=== PATIENT | female | born 1955 | race Caucasian/White ===

== ENCOUNTER 2017-10-09 13:13 | Observation (INO) | payer OTHER ==
[2017-10-09 13:20] VITALS: BMI 26.6
[2017-10-09] MEDS ORDERED: ONDANSETRON 4 MG/2 ML VIAL IVPUSH STA (14:15)
[2017-10-09] MEDS ORDERED: SODIUM CHLORIDE 1,000 ML IV STA (14:23)
--- NOTE | 2017-10-09 14:26 | PDOC ---
History of Present Illness <FeliciaDamian - Last Filed: 10/09/17 17:21> - General History Source: Patient Exam Limitations: No Limitations - History of Present Illness Initial Comments: This is a 61 YOF with h/o TIA (on ASA), HTN, HLD, and occasional positional vertigo who presents c/o 10/10 constant non-radiating frontal headache with associated with constant vertigo for the past two days. This is in the setting of recent flu-like symptoms (sore throat, cough, fever, chills, and nausea). The headache started gradually and has been unrelieved with Tylenol. The patient notes that these symptoms feel the same as her prior TIA, and the vertigo feels different from her prior episodes of vertigo because now it is constant and not positional. She has had difficulty walking and balancing since the onset of headache and vertigo, and almost fell at home but was able to catch herself on a handrail. She did get a flu vaccination this year. She denies any new numbness, tingling, focal weakness, vision changes, speech changes, difficulty swallowing, chest pain, SOB, palpitations, abdominal pain, vomiting, diarrhea, or constipation. <Opal Watkins - Last Filed: 10/09/17 20:22> - General Chief Complaint: Headache Stated Complaint: DIZZINESS, HEADACHES Time Seen by Provider: 10/09/17 13:48 Past History <FeliciaDamian - Last Filed: 10/09/17 17:21> - Past Medical History Cardiac Disorders: Yes COPD: No HTN: Yes Hypercholesterolemia: Yes - Suicide/Smoking/Psychosocial Hx Smoking History: Never smoked Hx Alcohol Use: No Drug/Substance Use Hx: No Substance Use Type: None <Opal Watkins - Last Filed: 10/09/17 20:22> - Past Medical History Allergies/Adverse Reactions: Allergies Allergy/AdvReac Type Severity Reaction Status Date / Time No Known Allergies Allergy Verified 10/09/17 13:18 Home Medications: Ambulatory Orders Aspirin [ASA -] 81 mg PO DAILY 10/09/17 Atorvastatin Calcium 40 mg PO DAILY 10/09/17 Carvedilol 12.5 mg PO BID 10/09/17 Meclizine HCl 12.5 mg PO DAILY 10/09/17 Review of Systems - Review of Systems Able to Perform ROS?: Yes Constitutional: Yes: Chills, Fever. No: Unexplained wgt Loss HEENTM: Yes: Nose Congestion, Throat Pain Respiratory: Yes: Cough. No: Shortness of Breath Cardiac (ROS): No: Chest Pain, Palpitations ABD/GI: Yes: Nausea. No: Constipated, Diarrhea, Vomiting : No: Burning, Dysuria Musculoskeletal: No: Back Pain, Neck Pain Integumentary: No: Bruising, Rash Neurological: Yes: Headache, Dizziness. No: Numbness, Tingling, Weakness Endocrine: No: Unexplained Weight Gain, Unexplained Weight Loss <Opal Watkins - Last Filed: 10/09/17 20:22> *Physical Exam - Vital Signs Last Vital Signs Temp Pulse Resp BP Pulse Ox 100.3 F H 100 H 18 114/73 98 10/09/17 13:17 10/09/17 13:17 10/09/17 13:17 10/09/17 13:17 10/09/17 13:59 <Damian Duarte - Last Filed: 10/09/17 17:21> - Vital Signs Last Vital Signs Temp Pulse Resp BP Pulse Ox 100.3 F H 100 H 18 114/73 98 10/09/17 13:17 10/09/17 13:17 10/09/17 13:17 10/09/17 13:17 10/09/17 13:59 <Opal Watkins - Last Filed: 10/09/17 20:22> ED Treatment Course - LABORATORY CBC & Chemistry Diagram: 10/09/17 14:41 10/09/17 14:41 - ADDITIONAL ORDERS Additional order review: Laboratory Results 10/09/17 10/09/17 10/09/17 14:41 14:41 14:41 PT with INR INR VBG pH 7.37 POC VBG pCO2 47.7 POC VBG pO2 36.0 Mixed VBG HCO3 27.1 H Sodium Potassium Chloride Carbon Dioxide Anion Gap BUN Creatinine Creat Clearance w eGFR Random Glucose Lactic Acid 0.8 Calcium Phosphorus Magnesium Total Bilirubin AST ALT Alkaline Phosphatase Creatine Kinase Troponin I B-Natriuretic Peptide Total Protein Albumin Urine Color Urine Appearance Urine pH Ur Specific [place] Urine Protein Urine Glucose (UA) Urine Ketones Urine Blood Urine Nitrite Urine Bilirubin Urine Urobilinogen Ur Leukocyte Esterase Blood Type B POSITIVE Antibody Screen Negative 10/09/17 10/09/17 10/09/17 14:41 14:41 14:41 PT with INR 12.50 H INR 1.11 VBG pH POC VBG pCO2 POC VBG pO2 Mixed VBG HCO3 Sodium 140 Potassium 3.6 Chloride 103 Carbon Dioxide 30 Anion Gap 7 L BUN 16 Creatinine 0.9 Creat Clearance w eGFR > 60 Random Glucose 119 H Lactic Acid Calcium 8.7 Phosphorus 2.7 Magnesium 1.9 Total Bilirubin 0.4 AST 27 ALT 45 Alkaline Phosphatase 140 H Creatine Kinase 71 Troponin I < 0.02 B-Natriuretic Peptide 68.42 Total Protein 7.7 Albumin 3.5 Urine Color Yellow Urine Appearance Clear Urine pH 6.0 Ur Specific [place] 1.021 Urine Protein Negative Urine Glucose (UA) Negative Urine Ketones Negative Urine Blood Negative Urine Nitrite Negative Urine Bilirubin Negative Urine Urobilinogen Negative Ur Leukocyte Esterase Negative Blood Type Antibody Screen 10/09/17 14:41 RBC 4.39 MCV 85.8 MCHC 32.4 RDW 13.5 MPV 8.4 Neutrophils % 56.3 Lymphocytes % 27.4 Monocytes % 14.9 H Eosinophils % 1.1 Basophils % 0.3 - Medications Given in the ED: ED Medications Discontinued Medications Generic Name Dose Route Start Last Admin Trade Name Freq PRN Reason Stop Dose Admin Sodium Chloride 1,000 mls @ 1,000 mls/hr 10/09/17 14:23 10/09/17 14:47 Normal Saline - IV 10/09/17 15:22 1,000 mls/hr ASDIR STA Administration Ondansetron HCl 4 mg 10/09/17 14:15 10/09/17 14:47 Zofran Injection IVPUSH 10/09/17 14:16 4 mg ONCE STA Administration <Damian Duarte - Last Filed: 10/09/17 17:21> - LABORATORY CBC & Chemistry Diagram: 10/09/17 14:41 10/09/17 14:41 - RADIOLOGY Radiology Studies Ordered: Category Date Time Status HEAD CT WITHOUT CONTRAST [CT] Stat CT Scan 10/09/17 14:16 Ordered CHEST X-RAY PORTABLE* [RAD] Stat Radiology 10/09/17 14:15 Ordered <Opal Watkins - Last Filed: 10/09/17 20:22> Medical Decision Making - Medical Decision Making 10/09/17 17:21 61-year-old female with a history of TIA and positional vertigo presents with vertigo that she states is consistent with her previous TIA. Vitals remarkable for fever to 100.3 and tachycardia to the low 100s. Exam is unremarkable and patient is neurologically intact. Differential includes TIA versus CVA versus peripheral vertigo. Given history of similar symptoms diagnosed as TIA, IF CT head is negative patient will likely require an MRI and neuro consultation. She is out of the window for treatment with TPA. <KvngwillamDamian - Last Filed: 10/09/17 17:21> - Medical Decision Making 10/09/17 20:06 Received final read on non-con Head CT which shows nothing acute. Spoke with patient about her PCP - this is Gwen Jett who is not on [facility] service. Page sent to [facility] for admission to Tele Obs. 10/09/17 20:[address] Roy who admits patient to Tele Obs. Consult placed for neuro OC Dr. Sim. Decision to admit placed. <Opal Watkins - Last Filed: 10/09/17 20:22> *DC/Admit/Observation/Transfer <MatDamian quarles - Last Filed: 10/09/17 17:21> - Discharge Dispostion Admit: Yes <Opal Watkins - Last Filed: 10/09/17 20:22> Diagnosis at time of Disposition: Vertigo Headache Qualifiers: Headache type: unspecified Headache chronicity pattern: acute headache Intractability: not intractable Qualified Code(s): R51 - Headache - Discharge Dispostion Condition at time of disposition: Guarded - Referrals Referrals: ON STAFF,NOT [Primary Care Provider] - NIH Stroke Scale - Last Known Well Date/Time & Onset Date Last Known Well: 10/06/17 Time Last Known Well: 20:00 - Initial Evaluation Level of consciousness: Alert Ask patient the month and their age: Answers both correctly Ask patient to open & close eyes; make fist and let go: Obeys both correctly Best gaze (horizontal eye movement): Normal Visual field testing: No visual field loss Facial paresis (Show teeth/raise eyebrows/close eyes tight): Normal symmetrical movement Motor Function: Left Arm: Normal Motor Function: Right Arm: Normal (extends arm 90 (or 45) degrees for 10 seconds without drift Motor Function: Left Leg: Normal (extends leg 30 degrees for 5 seconds without drift) Motor Function: Right Leg: Normal (extends leg 30 degrees for 5 seconds without drift) Limb Ataxia: No ataxia Sensory(Use pinprick test arms,legs,trunk,face/side to side): Normal Best language (Describe picture, name items, read sentences): No Aphasia Dysarthria (read several words): Normal articulation Extinction and Inattention: No abnormality - Total Score NIH Stroke Scale Score: 0 <Opal Watkins - Last Filed: 10/09/17 20:22>
[2017-10-09] MEDS ORDERED: ONDANSETRON 4 MG/2 ML VIAL ONE (14:44)
[2017-10-09 14:52] LABS: BASO % 0.3 % (0-2.0); EOS % 1.1 % (0-4.5); HEMATOCRIT 37.6 % (32.4-45.2); HEMOGLOBIN 12.2 GM/dL (10.7-15.3); LYMPH % 27.4 % (8-40); MCH 27.8 pg (25.7-33.7); MCHC 32.4 g/dl (32.0-36.0); MEAN CELL VOLUME 85.8 fl (80-96); MEAN PLT VOLUME 8.4 fl (7.5-11.1); MONO % 14.9 % (3.8-10.2); NEUT % 56.3 % (42.8-82.8); PLATELET COUNT 190 K/MM3 (134-434); RBC 4.39 M/mm3 (3.60-5.2); RDW 13.5 % (11.6-15.6)
[2017-10-09 14:56] LABS: URINE APPEARANCE CLEAR; URINE BILIRUBIN NEGATIVE (NEGATIVE); URINE BLOOD NEGATIVE (NEGATIVE); URINE COLOR YELLOW; URINE GLUCOSE (UA) NEGATIVE (NEGATIVE); URINE KETONE NEGATIVE (NEGATIVE); URINE LEUK ESTERASE NEGATIVE (NEGATIVE); URINE NITRITE NEGATIVE (NEGATIVE); URINE PROTEIN NEGATIVE (NEGATIVE); URINE UROBILINOGEN NEGATIVE mg/dL (0.2-1.0)
[2017-10-09 15:01] LABS: VENOUS PC02 47.7 mmHg (38-52); VENOUS PH 7.37 (7.32-7.42)
[2017-10-09 15:06] LABS: INR 1.11 (0.82-1.09); PROTHROMBIN TIME (PATIENT) 12.5 SEC (9.98-11.88)
[2017-10-09 15:20] LABS: ALBUMIN 3.5 g/dl (3.4-5.0); ANION GAP 7 (8-16); BILIRUBIN,TOTAL 0.4 mg/dL (0.2-1.0); BLOOD UREA NITROGEN 16 mg/dL (7-18); CALCIUM 8.7 mg/dL (8.5-10.1); CHLORIDE 103 mmol/L (98-107); CO2 30 mmol/L (21-32); CREATININE 0.9 mg/dL (0.55-1.02); GLUCOSE,RANDOM 119 mg/dL (74-106); MAGNESIUM 1.9 mg/dL (1.8-2.4); PHOSPHOROUS 2.7 mg/dL (2.5-4.9); POTASSIUM 3.6 mmol/L (3.5-5.1); SGOT/AST 27 U/L (15-37); SGPT/ALT 45 U/L (12-78); SODIUM 140 mmol/L (136-145); TOT PROT 7.7 g/dl (6.4-8.2)
[2017-10-09 15:23] LABS: ALK PHOS 140 U/L (45-117); N-TERMINAL BNP 68.42 pg/ml (5-125)
[2017-10-09] MEDS ORDERED: METOCLOPRAMIDE HCL INJECTION 10 MG/2 ML VIAL ONE (17:58)
[2017-10-09] MEDS ORDERED: METOCLOPRAMIDE HCL INJECTION 10 MG/2 ML VIAL IVPUSH ONE (18:06)
--- NOTE | 2017-10-09 18:25 | PDOC ---
Attending Attestation - Resident Resident Name: Opal Watkins - ED Attending Attestation I have performed the following: I have examined & evaluated the patient, The case was reviewed & discussed with the resident, I agree w/resident's findings & plan, Exceptions are as noted - HPI HPI: 10/09/17 18:24 The patient is a 61 year old female, with a significant past medical history of TIA (5 months ago, sxs of vertigo), HTN and HLD, BPPV on meclizine PRN who presents to the emergency department with headache and vertigo for the past 2 days. She descrbes her headahce as localized in the frontal region, ranging from mild to moderate, with radiation to the temples bilaterally. She denies any modifying factors. She reports that the pain was gradual onset. She notes that she recently had flu like symptoms 4 days ago, which included fever, cough, sore throat runny nose and nausea. She reports that she has been taking meclizine for her vertgio, which has not been working. She reports that she has seen a neurologist before and her next appointment is not for a few more months. The patient denies chest pain, shortness of breath, chills, vomit, diarrhea and constipation. Denies dysuria, frequency, urgency and hematuria. Allergies: None Past surgical history: None reported Social history: No alcohol, tobacco or drug use reported - Physicial Exam PE: 10/09/17 18:25 GENERAL: Awake, alert, and fully oriented, in no acute distress, feels warm HEAD: No signs of trauma EYES: PERRLA, EOMI, sclera anicteric, conjunctiva clear ENT: Auricles normal inspection, hearing grossly normal, nares patent, oropharynx clear without exudates. Moist mucosa NECK: Normal ROM, supple, no lymphadenopathy, JVD, or masses. Neck is supple with negative kernigs and brudzinski's signs. LUNGS: Breath sounds equal, clear to auscultation bilaterally. No wheezes, and no crackles HEART: Regular rate and rhythm, normal S1 and S2, no murmurs, rubs or gallops ABDOMEN: Soft, nontender, normoactive bowel sounds. No guarding, no rebound. No masses EXTREMITIES: Normal range of motion, no edema. No clubbing or cyanosis. No cords, erythema, or tenderness NEUROLOGICAL: Normal speech, cranial nerves intact, negative pronator drift, 5/ 5 strength in all 4 extremities, normal sensation to light touch in all 4 extremities, normal cerebellar exam, normal gait, normal reflexes and tone. SKIN: Warm, Dry, normal turgor, no rashes or lesions noted. - Medical Decision Making 10/09/17 18:27 61-year-old female with a history of TIA, positional vertigo presents with nonbloody positional vertigo. Patient also reports flulike symptoms. Vitals remarkable for fever and mild tachycardia initially, heart rate now 94. Exam is unremarkable, NIH stroke scale is 0 at this time. Given history of TIA with similar symptoms, we'll obtain a CT had and if negative patient will require neuro consult, MRI and admission. With regards to fever, patient likely has viral syndrome/possibly influenza. Will obtain chest x-ray, urinalysis and flu swab for further evaluation. Given headache and dizziness, meningitis is a consideration, however patient is not altered, is not meningitic, does not have a rash, and is neurologically intact.
--- NOTE | 2017-10-09 21:23 | PN ---
Teaching Attending Note Name of Resident: Wili Johnson ATTENDING PHYSICIAN STATEMENT I saw and evaluated the patient. I reviewed the resident's note and discussed the case with the resident. I agree with the resident's findings and plan as documented. SUBJECTIVE: 60 F with Pmhx of TIA, HTN, HLD and BPPV who presents with 10/10 headache and constant vertigo. States she has had fever, chills sore throat and associated nausea. Notes she has had her flu shot this year. States He headache is similar to prior TIA, and her dizziness is different from her positional vertigo in that it is constant in nature and unrelieved by Meclizine. No numbness or tingling. States headache has improved. No chest pain or pressure. No vomiting or diarrhea. Denies any sick contacts. No chest pain or pressure. OBJECTIVE: Physical: VS: Vital Signs Period Temp Pulse Resp BP Sys/Ricardo Pulse Ox Last 24 Hr 98.9 F-100.3 F 89-100 17-18 114-123/73-76 97-98 GEN: NAD, Resting in bed, AA0X3 HEENT: NCAT, PERRL, throat without erythema or exudates CARD: RRR S1, S2 RESP: Mild Crackles L. Base, R lung CTA ABD: BSx4, NTD to palpation EXT: - C/C/E NEURO: CN II-XII intact CBCD WBC 5.0 K/mm3 (4.0-10.0) 10/09/17 14:41 RBC 4.39 M/mm3 (3.60-5.2) 10/09/17 14:41 Hgb 12.2 GM/dL (10.7-15.3) 10/09/17 14:41 Hct 37.6 % (32.4-45.2) 10/09/17 14:41 MCV 85.8 fl (80-96) 10/09/17 14:41 MCHC 32.4 g/dl (32.0-36.0) 10/09/17 14:41 RDW 13.5 % (11.6-15.6) 10/09/17 14:41 Plt Count 190 K/MM3 (134-434) 10/09/17 14:41 MPV 8.4 fl (7.5-11.1) 10/09/17 14:41 CMP Sodium 140 mmol/L (136-145) 10/09/17 14:41 Potassium 3.6 mmol/L (3.5-5.1) 10/09/17 14:41 Chloride 103 mmol/L (98-107) 10/09/17 14:41 Carbon Dioxide 30 mmol/L (21-32) 10/09/17 14:41 Anion Gap 7 (8-16) L 10/09/17 14:41 BUN 16 mg/dL (7-18) 10/09/17 14:41 Creatinine 0.9 mg/dL (0.55-1.02) 10/09/17 14:41 Creat Clearance w eGFR > 60 (>60) 10/09/17 14:41 Random Glucose 119 mg/dL (74-106) H 10/09/17 14:41 Calcium 8.7 mg/dL (8.5-10.1) 10/09/17 14:41 Total Bilirubin 0.4 mg/dL (0.2-1.0) 10/09/17 14:41 AST 27 U/L (15-37) 10/09/17 14:41 ALT 45 U/L (12-78) 10/09/17 14:41 Alkaline Phosphatase 140 U/L (45-117) H 10/09/17 14:41 Total Protein 7.7 g/dl (6.4-8.2) 10/09/17 14:41 Albumin 3.5 g/dl (3.4-5.0) 10/09/17 14:41 CARDIAC ENZYMES Creatine Kinase 71 IU/L (26-192) 10/09/17 14:41 Troponin I < 0.02 ng/ml (0.00-0.05) 10/09/17 14:41 CBCD WBC 5.0 K/mm3 (4.0-10.0) 10/09/17 14:41 RBC 4.39 M/mm3 (3.60-5.2) 10/09/17 14:41 Hgb 12.2 GM/dL (10.7-15.3) 10/09/17 14:41 Hct 37.6 % (32.4-45.2) 10/09/17 14:41 MCV 85.8 fl (80-96) 10/09/17 14:41 MCHC 32.4 g/dl (32.0-36.0) 10/09/17 14:41 RDW 13.5 % (11.6-15.6) 10/09/17 14:41 Plt Count 190 K/MM3 (134-434) 10/09/17 14:41 MPV 8.4 fl (7.5-11.1) 10/09/17 14:41 CMP Sodium 140 mmol/L (136-145) 10/09/17 14:41 Potassium 3.6 mmol/L (3.5-5.1) 10/09/17 14:41 Chloride 103 mmol/L (98-107) 10/09/17 14:41 Carbon Dioxide 30 mmol/L (21-32) 10/09/17 14:41 Anion Gap 7 (8-16) L 10/09/17 14:41 BUN 16 mg/dL (7-18) 10/09/17 14:41 Creatinine 0.9 mg/dL (0.55-1.02) 10/09/17 14:41 Creat Clearance w eGFR > 60 (>60) 10/09/17 14:41 Random Glucose 119 mg/dL (74-106) H 10/09/17 14:41 Calcium 8.7 mg/dL (8.5-10.1) 10/09/17 14:41 Total Bilirubin 0.4 mg/dL (0.2-1.0) 10/09/17 14:41 AST 27 U/L (15-37) 10/09/17 14:41 ALT 45 U/L (12-78) 10/09/17 14:41 Alkaline Phosphatase 140 U/L (45-117) H 10/09/17 14:41 Total Protein 7.7 g/dl (6.4-8.2) 10/09/17 14:41 Albumin 3.5 g/dl (3.4-5.0) 10/09/17 14:41 CARDIAC ENZYMES Creatine Kinase 71 IU/L (26-192) 10/09/17 14:41 Troponin I < 0.02 ng/ml (0.00-0.05) 10/09/17 14:41 Ambulatory Orders Aspirin [ASA -] 81 mg PO DAILY 10/09/17 Atorvastatin Calcium 40 mg PO DAILY 10/09/17 Carvedilol 12.5 mg PO BID 10/09/17 Meclizine HCl 12.5 mg PO DAILY 10/09/17 NIHSS 0 EKG: NSR- NO ST-T Changes CXR: No acute process ASSESSMENT AND PLAN: 60 F with Pmhx of TIA, HTN, HLD and BPPV who presents with 10/10 headache and constant vertigo, found to be febrile and will be admitted for CVA/TIA Rule out. 1.) Dizziness: Labryinthitis vs. CVA/TIA vs. BPPV - Echo recently done outpt. obtain records - Carotid US - Trend Trop/EKG - C/W ASA/STATIN - Lipid Panel/A1C - TSH, B12, Folate - MRI Brain WO Con - Neuro consult - Meclizine prn - Kym-Flu for fever/URI sx 2.) HTN - C/W Coreg 3.) HLD - C/W Statin 4.) BPPV - C/W Meclizine 5.) Dvt Ppx - SCDS Place in Obs-Tele
[2017-10-09] MEDS ORDERED: MECLIZINE HCL 25 MG TABLET (FP) PO PRN (22:08)
[2017-10-09] MEDS ORDERED: SODIUM CHLORIDE 1,000 ML IV SCH (22:15)
--- NOTE | 2017-10-09 22:18 | HP ---
CHIEF COMPLAINT: vertigo, headache, flu symptoms PCP: Yo Jett HISTORY OF PRESENT ILLNESS: Pt is a 61 y/o F with PMH BPPV, TIA (presented with vertigo), HTN, HLD who presents with 2 days of frontal nonradiating b/l severe headache, subjective fever, sweating, chills, nausea, and constant vertigo not controlled by her usual Meclizine. Pt has a son-in-law that has been sick with a cold recently. At this time, symptoms are subsiding somewhat. Denies photo/phonophobia, neck stiffness, recent travel, vomiting, diarrhea, dysuria, cough, travel. ER course was notable for: (1) fever 100.3F, WBC 5.0, Tn neg, UA unremarkable (2) Head CT, CXR unremarkable. EKG: incomplete RBBB (3) Recent Travel: denies PAST MEDICAL HISTORY: TIA (on ASA), HTN, HLD, BPPV PAST SURGICAL HISTORY: Social History: Smoking: denies Alcohol: denies Drugs: denies Family History: denies Allergies No Known Allergies Allergy (Verified 10/09/17 13:18) HOME MEDICATIONS: Home Medications Medication Instructions Recorded Aspirin [ASA -] 81 mg PO DAILY 10/09/17 Atorvastatin Calcium 40 mg PO DAILY 10/09/17 Carvedilol 12.5 mg PO BID 10/09/17 Meclizine HCl 12.5 mg PO DAILY 10/09/17 REVIEW OF SYSTEMS CONSTITUTIONAL: fever, chills, diaphoresis, malaise Absent: , generalized weakness, loss of appetite, weight change HEENT: Absent: rhinorrhea, nasal congestion, throat pain, throat swelling, difficulty swallowing, mouth swelling, ear pain, eye pain, visual changes CARDIOVASCULAR: Absent: chest pain, syncope, palpitations, irregular heart rate, lightheadedness , peripheral edema RESPIRATORY: Absent: cough, shortness of breath, dyspnea with exertion, orthopnea, wheezing, stridor, hemoptysis GASTROINTESTINAL: nausea Absent: abdominal pain, abdominal distension, , vomiting, diarrhea, constipation , melena, hematochezia GENITOURINARY: Absent: dysuria, frequency, urgency, hesitancy, hematuria, flank pain, genital pain MUSCULOSKELETAL: Absent: myalgia, arthralgia, joint swelling, back pain, neck pain SKIN: Absent: rash, itching, pallor HEMATOLOGIC/IMMUNOLOGIC: Absent: easy bleeding, easy bruising, lymphadenopathy, frequent infections ENDOCRINE: Absent: unexplained weight gain, unexplained weight loss, heat intolerance, cold intolerance NEUROLOGIC: headache, vertigo, Absent: , focal weakness or paresthesias, unsteady gait, seizure, mental status changes, bladder or bowel incontinence PSYCHIATRIC: Absent: anxiety, depression, suicidal or homicidal ideation, hallucinations. PHYSICAL EXAMINATION Vital Signs - 24 hr 10/09/17 10/09/17 10/09/17 13:17 13:59 18:48 Temperature 100.3 F H 98.9 F Pulse Rate 100 H Pulse Rate [ 89 Apical] Respiratory 18 17 Rate Blood Pressure 114/73 Blood Pressure 123/76 [Left Arm] O2 Sat by Pulse 98 98 97 Oximetry (%) GENERAL: Awake, alert, and fully oriented, in no acute distress. HEAD: Normal with no signs of trauma. EYES: Pupils equal, round and reactive to light, extraocular movements intact, sclera anicteric, conjunctiva clear. No lid lag. EARS, NOSE, THROAT:oropharynx clear without exudates. Moist mucous membranes. NECK: Normal range of motion, supple without lymphadenopathy, JVD, or masses. No neck stiffness LUNGS: fine crackles. No wheezes, and no crackles. No accessory muscle use. HEART: Regular rate and rhythm, normal S1 and S2 without murmur, rub or gallop. ABDOMEN: Soft, nontender, not distended, normoactive bowel sounds, no guarding, no rebound, no masses. No hepatomegaly or splenomegaly. MUSCULOSKELETAL: Normal range of motion at all joints. No bony deformities or tenderness. No CVA tenderness. UPPER EXTREMITIES: 2+ pulses, warm, well-perfused. No cyanosis. No clubbing. No peripheral edema. LOWER EXTREMITIES: 2+ pulses, warm, well-perfused. No calf tenderness. No peripheral edema. NEUROLOGICAL: Cranial nerves II-XII intact. Normal speech. Normal gait. PSYCHIATRIC: Cooperative. Good eye contact. Appropriate mood and affect. SKIN: Warm, dry, normal turgor, no rashes or lesions noted, normal capillary refill. Laboratory Results - last 24 hr 10/09/17 10/09/17 10/09/17 14:41 14:41 14:41 WBC 5.0 RBC 4.39 Hgb 12.2 Hct 37.6 MCV 85.8 MCH 27.8 MCHC 32.4 RDW 13.5 Plt Count 190 MPV 8.4 Neutrophils % 56.3 Lymphocytes % 27.4 Monocytes % 14.9 H Eosinophils % 1.1 Basophils % 0.3 PT with INR 12.50 H INR 1.11 VBG pH POC VBG pCO2 POC VBG pO2 Mixed VBG HCO3 Sodium Potassium Chloride Carbon Dioxide Anion Gap BUN Creatinine Creat Clearance w eGFR Random Glucose Lactic Acid Calcium Phosphorus Magnesium Total Bilirubin AST ALT Alkaline Phosphatase Creatine Kinase Troponin I B-Natriuretic Peptide Total Protein Albumin Urine Color Yellow Urine Appearance Clear Urine pH 6.0 Ur Specific [place] 1.021 Urine Protein Negative Urine Glucose (UA) Negative Urine Ketones Negative Urine Blood Negative Urine Nitrite Negative Urine Bilirubin Negative Urine Urobilinogen Negative Ur Leukocyte Esterase Negative Blood Type Antibody Screen 10/09/17 10/09/17 10/09/17 14:41 14:41 14:41 WBC RBC Hgb Hct MCV MCH MCHC RDW Plt Count MPV Neutrophils % Lymphocytes % Monocytes % Eosinophils % Basophils % PT with INR INR VBG pH 7.37 POC VBG pCO2 47.7 POC VBG pO2 36.0 Mixed VBG HCO3 27.1 H Sodium 140 Potassium 3.6 Chloride 103 Carbon Dioxide 30 Anion Gap 7 L BUN 16 Creatinine 0.9 Creat Clearance w eGFR > 60 Random Glucose 119 H Lactic Acid Calcium 8.7 Phosphorus 2.7 Magnesium 1.9 Total Bilirubin 0.4 AST 27 ALT 45 Alkaline Phosphatase 140 H Creatine Kinase 71 Troponin I < 0.02 B-Natriuretic Peptide 68.42 Total Protein 7.7 Albumin 3.5 Urine Color Urine Appearance Urine pH Ur Specific [place] Urine Protein Urine Glucose (UA) Urine Ketones Urine Blood Urine Nitrite Urine Bilirubin Urine Urobilinogen Ur Leukocyte Esterase Blood Type B POSITIVE Antibody Screen Negative 10/09/17 14:41 WBC RBC Hgb Hct MCV MCH MCHC RDW Plt Count MPV Neutrophils % Lymphocytes % Monocytes % Eosinophils % Basophils % PT with INR INR VBG pH POC VBG pCO2 POC VBG pO2 Mixed VBG HCO3 Sodium Potassium Chloride Carbon Dioxide Anion Gap BUN Creatinine Creat Clearance w eGFR Random Glucose Lactic Acid 0.8 Calcium Phosphorus Magnesium Total Bilirubin AST ALT Alkaline Phosphatase Creatine Kinase Troponin I B-Natriuretic Peptide Total Protein Albumin Urine Color Urine Appearance Urine pH Ur Specific [place] Urine Protein Urine Glucose (UA) Urine Ketones Urine Blood Urine Nitrite Urine Bilirubin Urine Urobilinogen Ur Leukocyte Esterase Blood Type Antibody Screen ASSESSMENT/PLAN: Pt is a 61 y/o F with PMH TIA, BPPV who presents to ED with flu-like symptoms, headache, and vertigo for 2 days. Pt is being observed for workup for possible TIA. #Vertigo -Pt w/ hx BPPV normally well-controlled on Meclizine 12.5 has not been controlled for 2 d -Previous TIA presented with vertigo -Tele-obs -Orthostatics done and negative (120/78 lying down, 121/76 standing) -Echo done by PCP recently. Day team to obtain records -Carotid doppler -TSH, B12, Folate, ESR (r/o vasculitis), lipid panel -Meclizine 25 TID #HTN -c/w coreg #HLD -c/w atorvastatin #BPPV -c/w Meclizine @ 25mg TID (home dose 12.5) #FEN -NS @ 50 -lytes wnl -na-controlled diet #PPx -Hep Sub Q #Dispo -Tele/obs for possible TIA workup Wili Johnson MD PGY-1, IM Visit type - Emergency Visit Emergency Visit: Yes ED Registration Date: 10/09/17 Care time: The patient presented to the Emergency Department on the above date and was hospitalized for further evaluation of their emergent condition. - New Patient This patient is new to me today: Yes Date on this admission: 10/09/17 - Critical Care Critical Care patient: No
[2017-10-09] MEDS ORDERED: OSELTAMIVIR PHOSPHATE 75 MG CAPSULE ONE (22:28)
[2017-10-09] MEDS ORDERED: HEPARIN NA (PORCINE) 5,000 UNITS/ML 1ML VIAL ONE (22:28)
[2017-10-09] MEDS: HEPARIN NA (PORCINE) 5,000 UNITS/ML 1ML VIAL SQ SCH (22:41)
[2017-10-09] MEDS: OSELTAMIVIR PHOSPHATE 75 MG CAPSULE PO SCH (22:42)
[2017-10-10] MEDS ORDERED: HEPARIN NA (PORCINE) 5,000 UNITS/ML 1ML VIAL ONE (06:09)
[2017-10-10] MEDS: HEPARIN NA (PORCINE) 5,000 UNITS/ML 1ML VIAL SQ SCH (06:14)
[2017-10-10 08:10] LABS: BASO % 0.3 % (0-2.0); EOS % 1.7 % (0-4.5); HEMATOCRIT 36.9 % (32.4-45.2); LYMPH % 43.5 % (8-40); MCH 28.2 pg (25.7-33.7); MCHC 32.5 g/dl (32.0-36.0); MEAN CELL VOLUME 86.6 fl (80-96); MEAN PLT VOLUME 9.3 fl (7.5-11.1); MONO % 13.6 % (3.8-10.2); NEUT % 40.9 % (42.8-82.8); PLATELET COUNT 188 K/MM3 (134-434); RBC 4.26 M/mm3 (3.60-5.2); RDW 13.8 % (11.6-15.6); WHITE BLOOD COUNT 4.5 K/mm3 (4.0-10.0)
[2017-10-10 08:31] LABS: CHLORIDE 106 mmol/L (98-107); POTASSIUM 3.9 mmol/L (3.5-5.1); SODIUM 143 mmol/L (136-145)
[2017-10-10 08:41] LABS: ALBUMIN 3.4 g/dl (3.4-5.0); ALK PHOS 120 U/L (45-117); ANION GAP 9 (8-16); BILIRUBIN,TOTAL 0.4 mg/dL (0.2-1.0); BLOOD UREA NITROGEN 14 mg/dL (7-18); CALCIUM 8.4 mg/dL (8.5-10.1); CO2 28 mmol/L (21-32); CREATININE 0.8 mg/dL (0.55-1.02); GLUCOSE,RANDOM 89 mg/dL (74-106); PHOSPHOROUS 3.4 mg/dL (2.5-4.9); SGOT/AST 24 U/L (15-37); SGPT/ALT 39 U/L (12-78); TOT PROT 7.3 g/dl (6.4-8.2)
[2017-10-10] MEDS ORDERED: ASPIRIN 81 MG CHEWABLE TABLETS PO SCH (10:00)
[2017-10-10] MEDS ORDERED: CARVEDILOL 12.5 MG TABLET (FP) PO SCH (10:00)
[2017-10-10] MEDS: OSELTAMIVIR PHOSPHATE 75 MG CAPSULE PO SCH (10:27)
--- NOTE | 2017-10-10 13:04 | EKG ---
Test Reason : Blood Pressure : / mmHG Vent. Rate : 083 BPM Atrial Rate : 083 BPM P-R Int : 158 ms QRS Dur : 098 ms QT Int : 384 ms P-R-T Axes : 048 -01 001 degrees QTc Int : 451 ms NORMAL SINUS RHYTHM INCOMPLETE RIGHT BUNDLE BRANCH BLOCK BORDERLINE ECG NO PREVIOUS ECGS AVAILABLE Confirmed by WARNER HOOKS MD ([id number]) on 10/10/2017 1:04:32 PM Referred By: Confirmed By:WARNER HOOKS MD
--- NOTE | 2017-10-10 13:05 | CON.NEURO ---
Consult - History of Present Illness History of Present Illness: 60 F with Pmhx of TIA, HTN, HLD and BPPV who presents with 10/10 headache and constant vertigo. States she has had fever, chills sore throat and associated nausea, "the flu x 3 days" . Notes she has had her flu shot this year. States He headache is similar to prior TIA, and her dizziness is different from her positional vertigo in that it is constant in nature and unrelieved by Meclizine. No numbness or tingling. States headache has improved. No chest pain or pressure. No vomiting or diarrhea. Denies any sick contacts. No chest pain or pressure.son by bedside. CT HD Impression. No evidence of acute intracranial hemorrhage, edema, midline shift, mass effect, or skull fracture. No CT evidence of acute territorial ischemic changes. - Alcohol/Substance Use Hx Alcohol Use: No - Smoking History Smoking history: Never smoked Home Medications - Allergies Allergies/Adverse Reactions: Allergies Allergy/AdvReac Type Severity Reaction Status Date / Time No Known Allergies Allergy Verified 10/09/17 13:18 - Home Medications Home Medications: Ambulatory Orders Aspirin [ASA -] 81 mg PO DAILY 10/09/17 Atorvastatin Calcium 40 mg PO DAILY 10/09/17 Carvedilol 12.5 mg PO BID 10/09/17 Meclizine HCl 12.5 mg PO DAILY 10/09/17 Physical Exam-Neuro Vital Signs: Vital Signs Temperature 98.7 F 10/10/17 10:17 Pulse Rate 84 10/10/17 10:17 Respiratory Rate 16 10/10/17 10:17 Blood Pressure 139/71 10/10/17 10:17 O2 Sat by Pulse Oximetry (%) 98 10/10/17 10:17 Constitutional: Yes: Well Nourished Neck: Yes: Supple Cardiovascular: Yes: Regular Rate and Rhythm Labs: CBC, BMP 10/10/17 07:42 10/10/17 07:42 INR, PTT INR 1.11 (0.82-1.09) 10/09/17 14:41 - Neuro Exam Level Of Consciousness: Yes: Alert Eyes: Yes: PERRLA Speech: WNL Cranial Nerves II-XII Intact: Yes Babinski: Absent Response to light touch: Normal Motor Strength: 5/5: Left Arm, Right Arm, Left Leg, Right Leg Gait: Normal Imaging - Results Cat Scan: Report Reviewed, Image Reviewed Problem List - Problems (1) Headache Code(s): R51 - HEADACHE Qualifiers: Headache type: unspecified Headache chronicity pattern: acute headache Intractability: not intractable Qualified Code(s): R51 - Headache (2) Vertigo Code(s): R42 - DIZZINESS AND GIDDINESS Assessment/Plan ROSA and vertigo in setting of flu like sx CT HD (-) no evidence of neurological deficits no evidence of ischemic event or meningitis suspect peripheral vertigo can be DC and FU as outpt form neuro stand point Dr Sen
--- NOTE | 2017-10-10 15:36 | PN ---
Teaching Attending Note Name of Resident: Andrew Horn ATTENDING PHYSICIAN STATEMENT I saw and evaluated the patient. I reviewed the resident's note and discussed the case with the resident. I agree with the resident's findings and plan as documented. SUBJECTIVE:has slight ROSA this AM which is improved with tylenol. states dizzyness resolved yesterday but can not ascertain if it was after specific treatment. states dizzyness was constant for the past few days which was worse on exertion. was also feeling warm but did not take her temperature. denies CP, SOB, chills, N/v/C/D, hearing loss, tinnitus, gait disturbances. states her son is home with URI like symptoms. was not tested for the flu. is not on abx or antivirals. OBJECTIVE: Last Vital Signs Temp Pulse Resp BP Pulse Ox 98.7 F 76 18 106/61 97 10/10/17 10:17 10/10/17 13:12 10/10/17 13:12 10/10/17 13:12 10/10/17 13:12 General NAD HEENT EOMI, PERRL, no nystagmus CV S1 S2 RRR no murmur/rub/gallop Lungs CTA B/L no wheezing/rales/rhonchi Neuro CN grossly intact, negative dysdakinesi, negative dysmetria, no pronator drift, negative rhomberg, negative heel to kendrick ASSESSMENT AND PLAN: 61yo F with PMH TIA, HTN, dyslipidemia and BPPV presented to the ER with persistent dizzyness 1. Dizzyness- due to vertigo. symptoms now resolved. no neurological deficits and no gait disturbances. Head CT negative. neuro evaluation. can f/u with neuro as outpatient 2. Upper URI like symptoms- Tm 100.3. no leukocytosis. CXR negative. do not believe she has the flu. rapid flu negative. no flu contacts. will d/c tamiflu 3. can d/c home follow up with PMD and neuro
--- NOTE | 2017-10-10 17:36 | DS ---
Physical Exam: SUBJECTIVE: Patient seen and examined. Says she feels much better today except for frontal headache which improved with tylenol. She said it is less intense than it was overnight. She denies dizziness, vertigo, subjective fever, sweating, chills, nausea, photophobia, neck stiffness, recent travel, dysuria. OBJECTIVE: Vital Signs Period Temp Pulse Resp BP Sys/Ricardo Pulse Ox Last 24 Hr 98.7 F-98.9 F 75-89 16-18 106-139/61-76 97-98 PHYSICAL EXAM GENERAL: The patient is awake, alert, and fully oriented, in no acute distress. HEAD: Normal with no signs of trauma. EYES: PERRL, extraocular movements intact, sclera anicteric, conjunctiva clear. ENT: oropharynx clear without exudates, moist mucous membranes. NECK: supple. LUNGS: Breath sounds equal, clear to auscultation bilaterally, no wheezes, no crackles, no accessory muscle use. HEART: Regular rate and rhythm, S1, S2 without murmur, rub or gallop. ABDOMEN: Soft, epigastric tenderness, nondistended, normoactive bowel sounds, no guarding, no rebound. EXTREMITIES: 2+ pulses, warm, well-perfused, no edema. NEUROLOGICAL: Cranial nerves II through XII grossly intact. Normal speech, gait not observed. No pronator drift, normal finger to nose, negative rhomberg. PSYCH: Normal mood, normal affect. SKIN: Warm, dry, normal turgor, no rashes or lesions noted. LABS Laboratory Results - last 24 hr 10/10/17 10/10/17 10/10/17 07:42 07:42 07:42 WBC 4.5 RBC 4.26 Hgb 12.0 Hct 36.9 MCV 86.6 MCH 28.2 MCHC 32.5 RDW 13.8 Plt Count 188 MPV 9.3 D Neutrophils % 40.9 L D Lymphocytes % 43.5 H D Monocytes % 13.6 H Eosinophils % 1.7 Basophils % 0.3 ESR 36 H Sodium 143 Potassium 3.9 Chloride 106 Carbon Dioxide 28 Anion Gap 9 BUN 14 Creatinine 0.8 Creat Clearance w eGFR > 60 Random Glucose 89 Calcium 8.4 L Phosphorus 3.4 Magnesium 2.0 Total Bilirubin 0.4 AST 24 ALT 39 Alkaline Phosphatase 120 H Total Protein 7.3 Albumin 3.4 HOSPITAL COURSE: Date of Admission:10/09/17 Pt is a 61 y/o F with PMH BPPV, TIA (in April, presented with vertigo), HTN, HLD who presents with 2 days of frontal nonradiating b/l severe headache, subjective fever, sweating, chills, nausea, and constant vertigo not controlled by her usual Meclizine. Pt has a son-in-law that has been sick with a cold recently. Patient presented to the ED with low grade temp of 100.[address], CXR were unremarkable. Flu test negative. Patient was given fluids, Tamiflu and observed overnight. Patient improved overnight. Neuro was consulted and recommended to follow up outpatient. Patient also agreed to follow up with her primary care physician after discharge. Date of Discharge: 10/10/17 Minutes to complete discharge: 35 Discharge Summary Reason For Visit: VERTIGO HEADACHE Current Active Problems Headache (Acute) Vertigo (Acute) Condition: Improved - Instructions Diet, Activity, Other Instructions: You were here because of headache and vertigo that was likely exacerbated by a viral infection. CT head was negative for any acute pathology. We increased your Meclizine to 25mg. Follow up with your primary care doctor in case he wants to make any adjustments. Please increase your water intake. You should drink 6 (8ounce) glasses daily Please follow up with your neurologist in 1 week. Follow up with your primary care physician in 1 week. If you feel your symptoms are worsening, please call your doctor or go to the nearest emergency room. Referrals: Aureliano Sen DO [Staff Physician] - 1 Week ON STAFF,NOT [Primary Care Provider] - Disposition: HOME - Home Medications Comprehensive Discharge Medication List: Ambulatory Orders Aspirin [ASA -] 81 mg PO DAILY 10/09/17 Atorvastatin Calcium 40 mg PO DAILY 10/09/17 Carvedilol 12.5 mg PO BID 10/09/17 Meclizine HCl [Antivert -] 25 mg PO TID PRN #30 tablet 10/10/17 This patient is new to me today: Yes Date on this admission: 10/10/17 Emergency Visit: Yes ED Registration Date: 10/09/17 Care time: The patient presented to the Emergency Department on the above date and was hospitalized for further evaluation of their emergent condition. Critical Care patient: No - Discharge Referral Referred to [facility] Med [facility] No
[2017-10-10 17:48] VITALS: BP 121/83; PULSE 78; TEMP 98.5
[2017-10-10] MEDS ORDERED: ATORVASTATIN CA 40 MG TABLET (FP) PO SCH (22:00)
== END 2017-10-10 16:50 | disposition home or self-care (01) ==
LOC: JER 13:13 → JERBED 20:20
PROVIDERS: ADMIT Internal Medicine; ATTEND Internal Medicine
PROC: 3E033GC Introduction of Other Therapeutic Substance into Peripheral Vein, Percutaneous Approach (ICD-10-PCS; principal; 2017-10-09)
PROC: 3E0337Z Introduction of Electrolytic and Water Balance Substance into Peripheral Vein, Percutaneous Approach (ICD-10-PCS; 2017-10-09)
PROC: 3E013GC Introduction of Other Therapeutic Substance into Subcutaneous Tissue, Percutaneous Approach (ICD-10-PCS; 2017-10-09)
DX: R42 Dizziness and giddiness (principal); R51 Headache; I10 Essential (primary) hypertension; E78.5 Hyperlipidemia, unspecified; Z86.73 Personal history of transient ischemic attack (TIA), and cerebral infarction without residual deficits; Z79.82 Long term (current) use of aspirin
CPT/HCPCS: 36415; 70450-TC; 71045-TC; 80053; 81003; 82550; 82803; 83605; 83735; 83880; 84100; 84484; 85025; 85610; 85651; 86850; 86900; 86901; 87040; 87086; 87804; 93005; 93010; 96361; 96372; 96374; 96375; 99285-25; G0378; J1644